=== PATIENT | female | born 1975 | race Caucasian/White ===

== ENCOUNTER 2025-07-19 17:14 | Emergency (ER) | payer BC ==
[2025-07-19] MEDS: fentaNYL 100 MCG/2 ML SDV NASBOTH ONE (17:59)
== END 2025-07-19 18:57 | disposition home or self-care (01) ==
LOC: JP.ED 17:14
DX: S42.202A Unspecified fracture of upper end of left humerus, initial encounter for closed fracture (principal); Z79.899 Other long term (current) drug therapy; V86.55XA Driver of 3- or 4- wheeled all-terrain vehicle (ATV) injured in nontraffic accident, initial encounter
CPT/HCPCS: 73030; 99284; J3010